=== PATIENT | male | born 1965 | race African-American/Black ===

== ENCOUNTER 2017-01-27 11:33 | Inpatient (IN) | payer MEDICAID ==
[~2017-01-27] VITALS: Ht 167.6 cm; Wt 72.6 kg
[~2017-01-27 11:33] MED LIST: BACTRIM DS TABL1 TAB PO; CORGARD40 MG PO; FLOMAX0.4 MG PO; HYDROCHLOROTHIA25 MG PO; HYDROCODON-ACE1 EAC7 PO; LISINOPRIL-HCTZ1 T13 PO; MIRALAX17 GM PO; NORVASC5 MG PO; OMNICEF300 MG PO; PEGASYS180 MCG/01 SUBD; PREDNISONE10 MG PO; PROSCAR5 MG PO; RIBASPHERE200 MG PO; VALIUM10 MG PO; VITAMIN D31000 UNIT PO; XANAX0.25 MG PO; XIFAXAN550 MG PO
[2017-01-27 12:23] LABS: BASOPHILS 0.1 % (0.0-2.0); EOSINOPHILS 0 % (0-7); HEMATOCRIT 42.9 % (42.0-54.0); IMMATURE GRANULOCYTES 0.1 % (0-5); MCH 25.4 pg (26.0-34.0); MCHC 32.6 g/dL (31.0-37.0); MCV 77.7 fL (80.0-100.0); MEAN PLATELET VOLUME 9.7 fL (7.4-10.4); MONOCYTES 16.2 % (2-11); NEUTROPHILS 66.6 % (40-80); PLATELET COUNT 155 10x3/uL (130-400); RBC 5.52 10x6/uL (4.20-6.10); RDW 14.5 % (11.5-14.5); WBC 8.1 10x3/uL (4.8-10.8)
[2017-01-27 12:55] LABS: ALBUMIN 4.2 g/dL (3.4-5.0); ANION GAP 13.2 mmol/L (8-16); BILIRUBIN - TOTAL 1.48 mg/dL (0.2-1.3); CALCIUM 10.1 mg/dL (8.5-10.1); CARBON DIOXIDE 29.8 mmol/L (21.0-32.0); CREATININE - SERUM 1.5 mg/dL (0.6-1.3); PROTEIN - SERUM 9.6 g/dL (6.4-8.2)
[2017-01-27 13:45] LABS: APPEARANCE HAZY (CLEAR); BILIRUBIN NEGATIVE (NEGATIVE); COLOR YELLOW (YELLOW); GLUCOSE NEGATIVE (NEGATIVE); KETONE NEGATIVE (NEGATIVE); LEUKOCYTE ESTERASE 2+ (NEGATIVE); NITRITE POSITIVE (NEGATIVE); PROTEIN TRACE mg/dL (NEGATIVE); SPECIFIC GRAVITY 1.015 (1.005-1.020); UROBILINOGEN NORMAL (NORMAL)
[2017-01-27 13:49] LABS: BACTERIA MANY /hpf (NONE SEEN); WHITE CELLS - URINE >50 /hpf (0-5)
[2017-01-27 14:10] LABS: UDS - AMPHET NEGATIVE QUAL (NEGATIVE); UDS - BARB NEGATIVE QUAL (NEGATIVE); UDS - BENZO POSITIVE QUAL (NEGATIVE); UDS - COCAINE NEGATIVE QUAL (NEGATIVE); UDS - METH NEGATIVE QUAL (NEGATIVE); UDS - OPIATE NEGATIVE QUAL (NEGATIVE); UDS - PCP NEGATIVE QUAL (NEGATIVE); UDS - THC NEGATIVE QUAL (NEGATIVE)
[2017-01-27 14:28] LABS: CKMB 73.1 U/L (0.0-3.6)
[2017-01-27 14:29] LABS: CREATINE KINASE 6123 UL (21-232); TROPONIN-I < 0.017 ng/mL (0.000-0.060)
--- NOTE | 2017-01-27 17:19 | NUR ---
Patient Name: WILLIE VINCENT Admission Status: ER Accout number: [id number] Admission Date: 01-27-2017 : 1965 Admission Diagnosis: Sepsis, UTI, CHIDI, confusion Attending: PEDRITO Current LOS: 1 Anticipated DC Date: 02-09-2017 Planned Disposition: [facility] Facility Primary Insurance: MEDICAID [place] Discharge Planning Comments: CM met with patient and his sister to complete initial discharge planning assessment. Patient's sister completed assessment. Patient has been living with her and has had increased falls and confusion. She reports that he has 4.5 hours a day private caregivers. She reports that he is wheelchair bound and not able to ambulate. I takes all they can to lift on him. They do not have any lifts in the home. She stated she is not sure he will be able to return to her home and may need longterm placement at time of discharge. She stated he will not like this but she is just not sure he can return to her home when he is discharged. CM educated her on the case management role with facilitating a safe discharge. Cm will continue to follow and will assist with dc plans/needs. Look Out Tower Fire Watcher: Marielle Hamlin RN, [facility] [phone] Is the patient Alert and Oriented? Yes * How many steps to enter\exit or inside your home? none * PCP Dr. Potter * Pharmacy [facility] * Preadmission Environment Home with Family * ADLs Partial Dependent * Partial ADLs (Assistance needed) Ambulation Bathing Medication Management Toileting Transfers * Equipment Bedside Commode Shower Chair * Other Equipment Urinal * List name and contact numbers for known caregivers / representatives who currently or will assist patient after discharge: Silvia Ferrari - sister - [phone] * Community resources currently utilized [employer] Whe[employer] Private Duty Care * Please name any agencies selected above. [facility] Home Meal program (provides his lunches) * Additional services required to return to the preadmission environment? Yes * Can the patient safely return to the preadmission environment? No * Has this patient been hospitalized within the prior 30 days at any hospital? No
--- NOTE | 2017-01-27 18:06 | NUR ---
REPORT REC'D FROM CHAPIN RETANA. ROOM READY AND AWAITING PT ARRIVAL.
--- NOTE | 2017-01-27 19:18 | NUR ---
INITIAL ROUNDS COMPLETED. PT PLACED ION BEDPAN PER REQUEST. SPEECH GARBLED. BED ALARM ON. WILL CONTINUE TO MONITOR. SR UP X2, CALL LIGHT WITHIN REACH.
[2017-01-27 20:18] VITALS: BP 136/95; BMI 23.3
[2017-01-27 20:26] VITALS: BP 136/95
--- NOTE | 2017-01-27 20:34 | NUR ---
ADMISSION ASSESSMNET AND HISTORY COMPLETED. PT DENIES ANY DISCOMFORT. WILL CONTINUE TO MONITOR. SR UP X3, CALL LIGHT WITHIN REACH AND BED ALARM ON.
--- NOTE | 2017-01-27 22:22 | NUR ---
PT PLACED ON BEDPAN PER REQUEST AT 1920 HRS. HAD SMALL BM AND SPILLED URINE IN BED. PT CLEANED AND BED LINENS CHANGED. ADMISSION ASSESSMENT AND HISTORY COMPLETED BY 2039 HRS. IV TO RAC WITH LR AT 100CC/HR. IV PATENT. SPEAK SLOW AND GARBLED AT TIME. FOLLOWS COMMANDS. L SIDED WEAKNESS NOTED. ANSWERS QUESTIONS APPROPRIATELY. PT CURRNTLY EATING ICE CREAM. SR UP X3, CALL LIGHT WITHIN REACH AND BED ALARM ON.
--- NOTE | 2017-01-28 00:25 | NUR ---
PT RESTING WITH EYES CLOSED. RESP EVEN AND REGULAR. SR UP X2, CALL LIGHT WITHIN REACH AND BE ALARM ON.
[2017-01-28 00:35] VITALS: BP 117/56
--- NOTE | 2017-01-28 02:59 | NUR ---
PT RESTING WITH EYES CLOSED. RESP EVEN AND REGULAR. SR UP X2, CALL LIGHT WITHIN REACH.
[2017-01-28 04:17] VITALS: BP 133/87
--- NOTE | 2017-01-28 04:22 | NUR ---
PT INCONTNENT OF URINE. INCONTINENT CARE DONE. BED LINENS CAHNGED. PT TOLERATED ACTIVITY WELL. WILL CONTINUE TO MONITOR.
--- NOTE | 2017-01-28 06:40 | NUR ---
VSS THROUGHOUT NIGHT. PT DENIED ANY DISCOMFORT. NEEDS MET; WILL CONTINUE TO MONITOR.
[2017-01-28 07:41] VITALS: BP 158/99
--- NOTE | 2017-01-28 11:00 | NUR ---
ALERT AND ORIENTED X4. SITTING UP IN BED. DENIES PAIN OR SOB. REQUESTING 3RD ICE CREAM. SPOKE WITH GALO VOSS REQUESTING FOR HUTCHISON PLACEMENT. PROVIDES INFORMATION REGARDING PROSTATE PROBLEMS THAT CAUSE FREQUENT UTIs. SISTER PLANS TO BE HERE IN A.M. TO SPEAK WITH DOCTOR. CONTINUE PLAN OF CARE. BED LOCKED AND LOW. CALL LIGHT IN REACH. TWO SIDERAILS UP.
[2017-01-28 11:39] VITALS: BP 142/96
[2017-01-28 15:21] VITALS: BP 99/63
--- NOTE | 2017-01-28 17:17 | NUR ---
SITTING UP IN BED EATING DINNER. TEMPERATURE DECREASE FROM 100 TO 98.4 AFTER TYLENOL ADMINISTRATION PER 'S ORDER. TOOK 2HR NAP BEFORE DINNER. DENIES SOB OR PAIN. CONTINUE PLAN OF CARE AND SAFETY PRECAUTIONS.
--- NOTE | 2017-01-28 19:30 | NUR ---
LYING SUPINE WITH HOB UP SR UP X2, C/L IN REACH. ALERT AND ORIENTED X3, RESP EVEN AND UNLAB, USES URINAL W/O DIFF. NS INFUSING W/O DIFF VIA PUMP AT 100CC/HR TO RT AC IV WITH NO R/S NOTED AT SITE. RT FOREHEAD HEMATOMA NOTED FROM FALL OUT OF CHAIR AT HOME. BED ALARM IS ON AND WORKING. DENIES NEEDS AT THIS TIME. CONTINUE TO MONITOR.
[2017-01-28 20:30] VITALS: BP 127/64
[2017-01-29 00:30] VITALS: BP 129/85
[2017-01-29 04:45] VITALS: BP 108/75
[2017-01-29 05:25] LABS: BASOPHILS 0.2 % (0.0-2.0); EOSINOPHILS 0.7 % (0-7); HEMOGLOBIN 11.4 g/dL (13.5-17.5); IMMATURE GRANULOCYTES 0.4 % (0-5); LYMPHOCYTES 34.9 % (15-50); MCHC 32.6 g/dL (31.0-37.0); MCV 76.8 fL (80.0-100.0); MEAN PLATELET VOLUME 9.6 fL (7.4-10.4); MONOCYTES 14.7 % (2-11); NEUTROPHILS 49.1 % (40-80); PLATELET COUNT 136 10x3/uL (130-400); RBC 4.56 10x6/uL (4.20-6.10); RDW 14.5 % (11.5-14.5)
[2017-01-29 05:27] LABS: WBC 5.7 10x3/uL (4.8-10.8)
[2017-01-29 06:15] LABS: ALKALINE PHOSPHATASE 95 U/L (46-116); ALT (SGPT) 33 U/L (10-68); BILIRUBIN - TOTAL 0.77 mg/dL (0.2-1.3); CALCIUM 8.9 mg/dL (8.5-10.1); CARBON DIOXIDE 27.5 mmol/L (21.0-32.0); CHLORIDE - SERUM 104 mmol/L (98-107); CREATININE - SERUM 1.4 mg/dL (0.6-1.3); GLUCOSE 119 mg/dL (74-106); PROTEIN - SERUM 7.2 g/dL (6.4-8.2); SODIUM 140 mmol/L (136-145); eGFR NON AFRICAN AMERICAN 56 mL/min (90-120)
[2017-01-29 06:16] LABS: ALBUMIN 2.8 g/dL (3.4-5.0); CALC OSMOLALITY 282 mosm/kg (275-300); CREATINE KINASE 1562 UL (21-232); UREA NITROGEN 20 mg/dL (7-18)
[2017-01-29 06:17] LABS: CKMB 3.2 U/L (0.0-3.6)
[2017-01-29 08:00] VITALS: BP 158/103
--- NOTE | 2017-01-29 11:30 | NUR ---
ALERT AND ORIENTED X4. PHYSICAL THERAPY CONSULTED. PHYSICAL THERAPY ASSIST TO CHAIR. MAX ASSIST. DIFFICULTY BEARING WEIGHT. BP-174/103. NOTIFY AND SIMONE. PRN BP MEDICATION ORDERED. CONTINUE PLAN OF CARE AND SAFETY PRECAUTIONS. CHAIR LOCKED. CALL LIGHT IN REACH.
[2017-01-29 12:00] VITALS: BP 174/103
[2017-01-29 12:45] VITALS: Ht 167.6 cm; Wt 72.6 kg
--- NOTE | 2017-01-29 14:14 | NUR ---
ALERT AND ORIENTED X4. PHYSICAL THERAPY ASSIST BACK TO BED MAX ASSIST. MANUALLY ASSESS BP. MANUAL BP 134/86. PRN APRESOLINE NOT ADMINISTERED. DENIES PAIN OR SOB. CONITNUE PLAN OF CARE AND SAFETY PRECAUTIONS.
[2017-01-29 16:00] VITALS: BP 138/82
--- NOTE | 2017-01-29 19:30 | NUR ---
AWAKE, ALERT, SPEECH IS GARBLED HARD TO UNDERSTAND AT TIMES. RT AC IV INTACT AND PATENT WITH NS AT 100CC/HR VIA PUMP W/O DIFF. BIAL SCDS IN PLACE TO LOWER LEGS, USES URINAL W/O DIFF. HOB UP SR UP X2, C/L IN REACH. BED ALARM IS ON AND DOES WORK. CONTINUE TO MONITOR.
[2017-01-29 20:00] VITALS: BP 153/105
[2017-01-30] VITALS: BP 99/66
--- NOTE | 2017-01-30 01:28 | NUR ---
EYES CLOSED, RESP UNLAB WITH NO S/S OF ACUTE DISTRESS NOTED. C/L IN REACH. CONTINUE TO MONITOR.
[2017-01-30 04:00] VITALS: BP 106/60
[2017-01-30 08:11] VITALS: BP 122/84
[2017-01-30 09:27] LABS: BASOPHILS 0.2 % (0.0-2.0); EOSINOPHILS 1.2 % (0-7); HEMATOCRIT 36.4 % (42.0-54.0); IMMATURE GRANULOCYTES 0.4 % (0-5); LYMPHOCYTES 37.3 % (15-50); MCH 25.5 pg (26.0-34.0); MCV 77.3 fL (80.0-100.0); MEAN PLATELET VOLUME 9.6 fL (7.4-10.4); MONOCYTES 10.6 % (2-11); NEUTROPHILS 50.3 % (40-80); PLATELET COUNT 134 10x3/uL (130-400); RBC 4.71 10x6/uL (4.20-6.10); RDW 14.2 % (11.5-14.5); WBC 4.8 10x3/uL (4.8-10.8)
[2017-01-30 09:39] LABS: ANION GAP 11.5 mmol/L (8-16); CALCIUM 9.2 mg/dL (8.5-10.1); CARBON DIOXIDE 27.9 mmol/L (21.0-32.0); CREATININE - SERUM 1.4 mg/dL (0.6-1.3); POTASSIUM - SERUM 3.4 mmol/L (3.5-5.1)
[2017-01-30 10:49] LABS: CKMB 1.7 U/L (0.0-3.6); CREATINE KINASE 773 UL (21-232)
[2017-01-30 11:58] VITALS: BP 164/107
[2017-01-30 15:55] VITALS: BP 176/108
[2017-01-30 20:29] VITALS: BP 148/101
--- NOTE | 2017-01-30 22:30 | NUR ---
RECEIVED IN BEDROOM. LAYING IN BED WITH EYES CLOSED. RESPONDS TO VOICE. ALERT. DIFFICULTY EXPRESSING NEEDS. IV INFUSING. IV SITE LEAKING. NEW IV STARTED TO LEFT FOREARM X 4 ATTEMPTS. CALL LIGHT IN REACH. BED ALARM ON
[2017-01-31 01:50] VITALS: BP 148/101
[2017-01-31 05:40] VITALS: BP 195/113
[2017-01-31 06:52] LABS: CREATINE KINASE 415 UL (21-232)
[2017-01-31 06:53] LABS: CKMB 1.2 U/L (0.0-3.6)
[2017-01-31 07:47] VITALS: BP 184/111
--- NOTE | 2017-01-31 10:34 | NUR ---
Patient Name: WILLIE VINCENT Encounter No: [id number] : 1965 Primary Insurance: MEDICAID [facility] [place] Date: 02-01-2017 Planned Disposition: Home External Planned Provider: OUTPATIENT REHAB AT [facility] follow-up note: CM RECEIVED TELEPHONE CALL FROM PT'S SISTER / POA, BRIANNA VOSS, . BRIANNA HAS MET WITH PT AND NOW REPORTS SHE IS ABLE TO TAKE CARE OF PT SINCE HE IS NOW ABLE TO ASSIST WITH TRANSFERS. BRIANNA IS GOING TO TAKE PT HOME AND DOES NOT WANT PT PLACED INTO ANY [facility] FACILITY, WHICH SHE WOULD ONLY DO IF SHE WAS NOT ABLE TO TAKE CARE OF PT SAFELY AT HOME. BRIANNA REPORTS HAVING FAMILY AND PREPARER SAMPLES AND REPAIRS ASSISTANCE FOR PT AND WILL BE CONTACTING PT'S PRIMARY CARE DOCTOR AND "[employer]" [employer]GANIZATION IN ATTEMPT TO GET PT A HOSPITAL BED FOR HOME USE. CM DISCUSSED AVAILABILITY OF HOME MARIO SERVICES. BRIANNA REPORTS SHE WANTS NOT WANTING HOME HEALTH, BUT WANTS TO BRING PT TO [facility] FOR OUTPATIENT REHAB AND WOULD ALSO LIKE A UROLOGIST FOLLOW UP FOR PT. CM SPOKE TO PT WHO WAS HAPPY AND REPORTS HE IS GOING HOME WITH HIS SISTER AND NOT TO A USP. CM DISCUSSED HIS SISTER'S PLAN FOR OUTPATIENT THERAPY AT [place], PT IS IN AGREEMENT WITH PLAN. CM CALLED [facility], , NOTIFIED TO CANCEL REFERRAL; CM CALLED DARIEL AT [facility], AND CANCELLED REHAB REFERRAL. PT'S SISTER WILL BE TAKING PT HOME AT DISCHARGE, REFUSED HOME HEALTH AND WANTS OUTPATIENT REHAB SERVICES ARRANGED FOR PT AT [place]. CM TO ARRANGE OUTPATIENT WITH PHYSICIAN ORDERS. Christopher Vasquez, CASE MANAGEMENT
[2017-01-31 10:38] LABS: BASOPHILS 0.2 % (0.0-2.0); EOSINOPHILS 1.2 % (0-7); HEMATOCRIT 34.4 % (42.0-54.0); HEMOGLOBIN 11.2 g/dL (13.5-17.5); IMMATURE GRANULOCYTES 0.2 % (0-5); LYMPHOCYTES 22.5 % (15-50); MCH 25.3 pg (26.0-34.0); MCHC 32.6 g/dL (31.0-37.0); MCV 77.8 fL (80.0-100.0); MEAN PLATELET VOLUME 10.5 fL (7.4-10.4); MONOCYTES 11.3 % (2-11); NEUTROPHILS 64.6 % (40-80); PLATELET COUNT 159 10x3/uL (130-400); RBC 4.42 10x6/uL (4.20-6.10); RDW 14.1 % (11.5-14.5); WBC 5.7 10x3/uL (4.8-10.8)
[2017-01-31 10:49] LABS: ALBUMIN 2.8 g/dL (3.4-5.0); BILIRUBIN - TOTAL 0.4 mg/dL (0.2-1.3); CALCIUM 9.1 mg/dL (8.5-10.1); CARBON DIOXIDE 27.2 mmol/L (21.0-32.0); CREATININE - SERUM 1.5 mg/dL (0.6-1.3); POTASSIUM - SERUM 3.2 mmol/L (3.5-5.1); PROTEIN - SERUM 7.1 g/dL (6.4-8.2)
[2017-01-31 11:45] VITALS: BP 88/60
[2017-01-31] MEDS ORDERED: LEVAQUIN500 MG PO (14:13)
--- NOTE | 2017-01-31 14:47 | NUR ---
PT ESTHER COMPLETED PT AMBULATED WITH PT AND THEN PLACED IN CHAIR AT BEDSIDE RENEE ONEAL REPORTED LOW BP 88/63 REASSESSED PT AND ASSISTED PT BACK TO BED AND RESUMED FLUIDS AND RECHECKED BP BP INCREASED TO 98/66 REASSESSED BP AND BP INCREASED TO 121/72 REPORTED TO SIMONE WONG THAT IT APPERED PT WAS ORTHOSTATIC POSITIVE NO ORDERS RECIVED FROM SIMONE AT THIS TIME
--- NOTE | 2017-01-31 15:07 | NUR ---
Patient Name: WILLIE VINCENT Encounter No: [id number] : 1965 Primary Insurance: MEDICAID [facility] [place] Date: 01-31-2017 Planned Disposition: Home External Planned Provider: OUTPATIENT PHYSICAL THERAPY AT [facility] DCP follow-up note: CM RECEIVED DISCHARGE ORDER ALONG WITH OUTPATIENT THERAPY ORDER. CM CALLED [facility] AT [address], WITH [facility] OUTPATIENT REHAB AND FAXED ORDER AND FACE SHEET TO [facility] AT [address]. CM CALLED BRIANNA VOSS, , LEFT MESSAGE INFORMING OF DISCHARGE AND OUTPATIENT THERAPY TO BE CONTACTING MS. VOSS TO SCHEDULE PT'S OUTPATIENT THERAPY AND REQUESTING RETURN CALL. PT'S SISTER, BRIANNA TO PROVIDE TRANSPORTATION HOME. Christopher Vasquez, CASE MANAGEMENT
--- NOTE | 2017-01-31 15:29 | NUR ---
IV DC'D AND CATH INTACT SISTER TSERING REACHED AND INFORMED OF DISCHARGE OUTPT PT SET UP AND UROLOGY APPT SET UP PT DRESSED AND TAKEN TO SISTER VEHICLE FOR TRANSPORT HOME
--- NOTE | 2017-02-01 07:48 | DS ---
PATIENT:WILLIE VINCENT :[birth year] MEDICAL RECORD: [id number] DISCHARGE SUMMARY ADMISSION DATE: 01/27/17 DISCHARGE DATE: 01/31/17 DATE OF ADMISSION: 01/27/2017 DATE OF DISCHARGE: 01/31/2017 ADMITTING DIAGNOSES: Urinary tract infection, rhabdomyolysis, hypokalemia, hepatitis C, liver disease, cirrhosis, acute kidney injury secondary to dehydration and rhabdomyolysis. HOSPITAL COURSE: This is a gentleman of Dr. Potter'ru, admitted by Dr. Gabriel with diagnoses as outlined above. Details are well-outlined in the history of the present illness, H&P. All events, lab procedures, diagnostic testing are well documented in the records. The patient was admitted, started on IV fluids, IV antibiotics. Lactic acid on admission 1.4. UA showed many bacteria, greater than 50 white count, positive nitrite, trace protein. Urine drug screen positive for benzos. CT neck, no acute findings. CT head, no acute findings. Chest x-ray, no acute findings. CT facial bones, no acute findings. EKG, normal sinus rhythm, no ischemic changes. The patient was started on IV Levaquin and Zosyn. Kidney function and CPK as well as other labs and volume closely followed. On admission, creatinine 1.5, it went down to 1.4, today it is 1.5. CPK on admission 6123, it trended down, today 415. He is awake, alert today. He is eating. His sister is here. She plans to take him home with arrangements to be made for outpatient rehabilitation. Physical therapy worked with him while he was here. He is afebrile, pulse 98, respirations 18, blood pressure 175/76, prior to this 148/101. We will have the sister keep a blood pressure diary. He is working well with PT and is stable for dismissal home. He has completed 5 days of Levaquin. We will give him 2 more doses. His sister is requesting outpatient follow up with our new urologist, Dr. Valentine. He has a history of prostate disease. Dr. Yo feels he is stable for dismissal home. His CPKs seems to be trending down nicely. He may have a component of chronic kidney disease and that can be followed by Dr. Potter. DIAGNOSES AT DISCHARGE: Rhabdomyolysis, acute kidney injury on chronic. He did have a degree of chronic obstructive pulmonary disease exacerbation that has resolved, urinary tract infection, chronic disease ____ hypertension, cirrhosis, hepatitis C, history of vocal cord paralysis thrombocytopenia. Please refer to med rec. Greater than 30 minutes was spent on this discharge. TRANSINT:[id number] Voice Confirmation ID: [id number] DOCUMENT ID: [id number] Dictated By: SIMONE ALEMAN RN I have interviewed/examined the above patient and agree with these documented findings. DISCHARGE SUMMARY REPORT [id number] WILLIE VINCENT BARTON MD at 0748 at 1515 CC: [id number] DICTATION DATE: 01/31/17 1425 BIOLOGY TEACHER: 02/01/17 0212 DIS IN 01/31/17 [facility] [address] [place] [address]
== END 2017-01-31 15:47 | disposition home or self-care (01) | DRG 558 ==
LOC: D.ER 11:33 → D.M2 16:33
PROVIDERS: Emergency Medicine; Family Medicine; Family Medicine Adult Medicine; Nurse Practitioner Family; ADMIT Emergency Medicine
DX: M62.82 Rhabdomyolysis (principal); J44.1 Chronic obstructive pulmonary disease with (acute) exacerbation; N39.0 Urinary tract infection, site not specified; N17.9 Acute kidney failure, unspecified; E86.0 Dehydration; K74.60 Unspecified cirrhosis of liver; B19.20 Unspecified viral hepatitis C without hepatic coma; E87.6 Hypokalemia; D69.6 Thrombocytopenia, unspecified; I12.9 Hypertensive chronic kidney disease with stage 1 through stage 4 chronic kidney disease, or unspecified chronic kidney disease; N18.9 Chronic kidney disease, unspecified; Z86.73 Personal history of transient ischemic attack (TIA), and cerebral infarction without residual deficits; Z87.891 Personal history of nicotine dependence

== ENCOUNTER → 2017-02-13 08:55 | Outpatient (CLI) | payer MEDICAID ==
[2017-01-29 12:45] VITALS: BMI 23.4
[~2017-02-13 08:55] MED LIST changes: +LEVAQUIN500 MG PO
== END | disposition home or self-care (01) ==
LOC: D.LABREF 08:55
DX: N39.0 Urinary tract infection, site not specified (principal)

== ENCOUNTER 2017-04-04 19:22 | Emergency (ER) | payer MEDICAID ==
[2017-01-29 12:45] VITALS: BMI 23.4
[2017-04-04 22:16] LABS: BASOPHILS 0.3 % (0-2); HEMATOCRIT 31.8 % (42.0-54.0); HEMOGLOBIN 10.3 g/dL (13.5-17.5); IMMATURE GRANULOCYTES 0.2 % (0-5); LYMPHOCYTES 32.6 % (15-50); MCH 25.6 pg (26.0-34.0); MCHC 32.4 g/dL (31.0-37.0); MCV 78.9 fL (80.0-100.0); MEAN PLATELET VOLUME 9.1 fL (7.4-10.4); MONOCYTES 9.2 % (2-11); NEUTROPHILS 56.7 % (40-80); RBC 4.03 10x6/uL (4.20-6.10); RDW 15.7 % (11.5-14.5)
[2017-04-04 22:31] LABS: ALBUMIN 3.1 g/dL (3.4-5.0); ALKALINE PHOSPHATASE 119 U/L (46-116); ALT (SGPT) 19 U/L (10-68); BILIRUBIN - TOTAL 0.84 mg/dL (0.2-1.3); CALC OSMOLALITY 290 mosm/kg (275-300); CALCIUM 9.9 mg/dL (8.5-10.1); CHLORIDE - SERUM 102 mmol/L (98-107); CREATININE - SERUM 1.6 mg/dL (0.6-1.3); GLUCOSE 96 mg/dL (74-106); POTASSIUM - SERUM 3.1 mmol/L (3.5-5.1); PROTEIN - SERUM 8.8 g/dL (6.4-8.2); SODIUM 144 mmol/L (136-145); UREA NITROGEN 25 mg/dL (7-18); eGFR NON AFRICAN AMERICAN 48 mL/min (90-120)
[2017-04-04 22:33] LABS: PLATELET COUNT 254 10x3/uL (130-400)
[2017-04-04 22:43] LABS: PRO BNP 71 pg/mL (0-125)
[2017-04-04 22:48] LABS: TROPONIN-I < 0.017 ng/mL (0.000-0.060)
== END 2017-04-05 00:05 | disposition home or self-care (01) ==
LOC: D.ER 19:22
PROVIDERS: Nurse Practitioner Family
DX: S19.9XXA Unspecified injury of neck, initial encounter (principal); W01.0XXA Fall on same level from slipping, tripping and stumbling without subsequent striking against object, initial encounter; Y93.89 Activity, other specified; Y92.89 Other specified places as the place of occurrence of the external cause; I10 Essential (primary) hypertension